=== PATIENT | male | born 1950 | race Caucasian/White ===

== ENCOUNTER → 2017-11-24 | Outpatient (CLI) | payer MEDICARE, BC ==
[2017-11-24 17:06] LABS: HEMATOCRIT 47.3 % (42.0-52.0); MEAN CORPUSCULAR HEMOGLOBIN 31.3 pg (27.0-33.0); MEAN CORPUSCULAR HGB CONC 33.8 g/dl (32.0-36.5); MEAN CORPUSCULAR VOLUME 92.4 fl (80.0-96.0); PLATELET COUNT, AUTOMATED 281 10^3/uL (150-450); RED BLOOD COUNT 5.12 10^6/uL (4.30-6.10); RED CELL DISTRIBUTION WIDTH 12.3 % (11.5-14.5); WHITE BLOOD COUNT 7.9 10^3/uL (4.0-10.0)
[2017-11-25 00:36] LABS: ALBUMIN 3.9 GM/DL (3.2-5.2); ALKALINE PHOSPHATASE 112 U/L (45-117); ALT/SGPT 21 U/L (12-78); ANION GAP 10 MEQ/L (8-16); AST/SGOT 14 U/L (7-37); BILIRUBIN,TOTAL 0.7 MG/DL (0.2-1.0); BLOOD UREA NITROGEN 12 MG/DL (7-18); CALCIUM LEVEL 9.5 MG/DL (8.8-10.2); CARBON DIOXIDE LEVEL 27 MEQ/L (21-32); CHLORIDE LEVEL 105 MEQ/L (98-107); CREATININE FOR GFR 1.06 MG/DL (0.70-1.30); GLOMERULAR FILTRATION RATE > 60.0 (>49); GLUCOSE, FASTING 90 MG/DL (70-100); HDL CHOLESTEROL 48 MG/DL (>40); POTASSIUM SERUM 4.2 MEQ/L (3.5-5.1); SODIUM LEVEL 142 MEQ/L (136-145); TOTAL PROTEIN 7.7 GM/DL (6.4-8.2); TRIGLYCERIDES LEVEL 84 MG/DL (<150)
[2017-11-25 00:54] LABS: CHOLESTEROL LEVEL 206 MG/DL (<200); CHOLESTEROL RISK RATIO 4.291 (<5); NON-HDL-C 158 MG/DL
[2017-11-25 01:13] LABS: ALBUMIN/GLOBULIN RATIO 1.03 (1.00-1.93); LDL CHOLESTEROL 141 MG/DL (<100)
== END ==
LOC: M LRY 13:12
DX: Z12.5 Encounter for screening for malignant neoplasm of prostate (principal); R97.20 Elevated prostate specific antigen [PSA]
CPT/HCPCS: 84443

== ENCOUNTER → 2018-12-15 | Outpatient (CLI) | payer MEDICARE, BC ==
[~2018-12-15] MED LIST: MONT10TA2 PO; PANT40TA3 PO; SILD25TA2 PO
[2018-12-15 11:09] LABS: HEMATOCRIT 47.6 % (42.0-52.0); HEMOGLOBIN 15.4 g/dl (13.5-17.5); MEAN CORPUSCULAR HEMOGLOBIN 31.1 pg (27.0-33.0); MEAN CORPUSCULAR HGB CONC 32.4 g/dl (32.0-36.5); MEAN CORPUSCULAR VOLUME 96.2 fl (80.0-96.0); PLATELET COUNT, AUTOMATED 210 10^3/uL (150-450); RED BLOOD COUNT 4.95 10^6/uL (4.30-6.10); WHITE BLOOD COUNT 6.7 10^3/uL (4.0-10.0)
[2018-12-15 12:00] LABS: ALBUMIN 3.7 GM/DL (3.2-5.2); ALT/SGPT 24 U/L (12-78); BILIRUBIN,TOTAL 0.6 MG/DL (0.2-1.0); BLOOD UREA NITROGEN 13 MG/DL (7-18); CALCIUM LEVEL 8.9 MG/DL (8.8-10.2); CARBON DIOXIDE LEVEL 31 MEQ/L (21-32); CHLORIDE LEVEL 105 MEQ/L (98-107); CHOLESTEROL LEVEL 189 MG/DL (<200); CREATININE FOR GFR 1.11 MG/DL (0.70-1.30); GLOMERULAR FILTRATION RATE > 60.0 (>42); GLUCOSE, FASTING 100 MG/DL (70-100); HDL CHOLESTEROL 54 MG/DL (>40); LDL CHOLESTEROL 126 MG/DL (<100); NON-HDL-C 135 MG/DL; POTASSIUM SERUM 4.3 MEQ/L (3.5-5.1); PROSTATIC SPECIFIC AG MONITOR 5.88 NG/ML (< 4.00); SODIUM LEVEL 143 MEQ/L (136-145); TOTAL PROTEIN 6.8 GM/DL (6.4-8.2); TRIGLYCERIDES LEVEL 47 MG/DL (<150)
== END ==
LOC: M WUC 08:35
PROVIDERS: ATTEND Family Medicine
DX: Z12.5 Encounter for screening for malignant neoplasm of prostate (principal); I10 Essential (primary) hypertension; R53.81 Other malaise; R97.21 Rising PSA following treatment for malignant neoplasm of prostate

== ENCOUNTER 2019-01-24 17:17 | Emergency (ER) | payer MEDICARE, BC ==
[~2019-01-24] VITALS: Ht 175.3 cm; Wt 96.4 kg
[2019-01-24] MEDS ORDERED: SILD25TA2 PO (17:29)
[2019-01-24] MEDS ORDERED: MONT10TA2 PO (17:30)
[2019-01-24] MEDS ORDERED: PANT40TA3 PO (17:30)
[2019-01-24] MEDS ORDERED: HEPARIN DRIP 25,000 UNITS in IV 1 EA IV SCH (17:35)
[2019-01-24] MEDS ORDERED: CLOPIDOGREL 300 MG TAB (PLAVIX) PO ONE (17:45)
[2019-01-24] MEDS ORDERED: HEPARIN SOD (PORCINE) 5000 UNITS/ML VIAL IV ONE (17:45)
[2019-01-24] MEDS ORDERED: TENECTEPLASE 50 MG KIT (TNKase) (J3101 PER 1MG) IV ONE (17:45)
[2019-01-24] MEDS ORDERED: MORPHINE 4 MG/ML 1ML VIAL/SYRINGE (J2270) IV PRN (17:45)
[2019-01-24] MEDS ORDERED: NS 1,000 ML IV ONE (17:45)
[2019-01-24] MEDS ORDERED: ONDANSETRON 4MG/2ML VIAL (J2405) IV ONE (17:45)
[2019-01-24 17:58] LABS: BASO # 0.1 10^3/uL (0.0-0.2); BASO % 0.3 % (0.0-1.0); EOS # 0.1 10^3/uL (0.0-0.5); EOS % 0.7 % (0.0-3.0); HEMATOCRIT 43.7 % (42.0-52.0); HEMOGLOBIN 14.6 g/dl (13.5-17.5); LYMPH # 1.8 10^3/uL (1.5-5.0); LYMPH % 9.9 % (24.0-44.0); MEAN CORPUSCULAR HEMOGLOBIN 31.8 pg (27.0-33.0); MEAN CORPUSCULAR HGB CONC 33.4 g/dl (32.0-36.5); MEAN CORPUSCULAR VOLUME 95.2 fl (80.0-96.0); MONO # 1.4 10^3/uL (0.0-0.8); MONO % 7.3 % (0.0-5.0); NEUTROPHILS # 15.2 10^3/uL (1.5-8.5); NEUTROPHILS % 81.3 % (36.0-66.0); PLATELET COUNT, AUTOMATED 235 10^3/uL (150-450); RED BLOOD COUNT 4.59 10^6/uL (4.30-6.10); WHITE BLOOD COUNT 18.6 10^3/uL (4.0-10.0)
[2019-01-24 18:03] VITALS: BP 146/69
[2019-01-24 18:07] LABS: INR 1.27; PROTHROMBIN TIME 15.7 SECONDS (11.8-14.0)
[2019-01-24 18:08] LABS: PARTIAL THROMBOPLASTIN TIME 28.3 SECONDS (25.0-38.4)
[2019-01-24 18:33] LABS: ALBUMIN 3.6 GM/DL (3.2-5.2); ALT/SGPT 22 U/L (12-78); BILIRUBIN,DIRECT 0.3 MG/DL (0.0-0.2); BLOOD UREA NITROGEN 14 MG/DL (7-18); CALCIUM LEVEL 9.4 MG/DL (8.8-10.2); CARBON DIOXIDE LEVEL 26 MEQ/L (21-32); CHLORIDE LEVEL 111 MEQ/L (98-107); CK-MB VALUE MASS 3.9 NG/ML (<3.6); CPK CREATINE PHOSPHOKINASE 187 U/L (39-308); CREATININE FOR GFR 1.24 MG/DL (0.70-1.30); GLOMERULAR FILTRATION RATE > 60.0 (>42); GLUCOSE, FASTING 132 MG/DL (70-100); LIPASE 88 U/L (73-393); MB/CK RELATIVE INDEX 2.09 (< OR =4); POTASSIUM SERUM 3.4 MEQ/L (3.5-5.1); SODIUM LEVEL 145 MEQ/L (136-145); TOTAL PROTEIN 7.2 GM/DL (6.4-8.2); TROPONIN I 0.03 NG/ML (< 0.10)
--- NOTE | 2019-01-25 08:01 | REP ---
Portable chest x-ray: A single view. History: Chest pain. Findings: EKG electrodes are seen. The lungs are symmetrically aerated and clear. The pleural angles are sharp. Heart is not enlarged. Pulmonary vasculature is not increased. No significant bony abnormality is seen. Impression: Negative portable chest x-ray. Electronically Signed by Abner Booth MD 01/25/2019 07:52 A
--- NOTE | 2019-01-26 07:23 | ECGEPIP ---
[facility] - ED Test Date: 2019-01-24 Pat Name: ANTOINETTE SUN Department: Room: - Gender: Male Benefits Clerk: TC : 1950 Requested By: Beulah Matias Order Number: [id number] Reading MD: Erasto Nova Measurements Intervals Souris Rate: 53 P: 17 MA: 170 QRS: 24 QRSD: 114 T: 82 QT: 431 QTc: 407 Interpretive Statements SINUS BRADYCARDIA INFERIOR MYOCARDIAL INFARCTION, POSSIBLY ACUTE ACUTE [place] Comparison tracing not on file Electronically Signed on 01-26-2019 7:23:32 EST by Erasto Nova
== END 2019-01-24 18:07 | disposition short-term general hospital (02) ==
LOC: EDBD 17:17 → M ED 17:17
DX: I21.19 ST elevation (STEMI) myocardial infarction involving other coronary artery of inferior wall (principal); R00.1 Bradycardia, unspecified; K21.9 Gastro-esophageal reflux disease without esophagitis; Z79.899 Other long term (current) drug therapy
CPT/HCPCS: 71045; 80048; 80076; 82550; 82553; 83690; 84484; 85025; 85610; 85730; 93005; 93041; 94760; 96374; 96375; 99291; J2270; J2405; J3101

== ENCOUNTER 2019-03-15 09:35 | Outpatient (RCR) | payer MEDICARE, BC ==
--- NOTE | 2019-03-03 10:00 | CARECAPL ---
Assessment Account #s: Initial Assessment General Diagnoses: CABG, STEMI Date of event: Jan 29, 2019 Physician: Ramone Nair Allergies: Coded Allergies: No Known Allergies (Verified Allergy, Unknown, 01/24/19) Date Entered Program: Mar 03, 2019 Risk strat for cardiac event: High Exercise Date: Mar 03, 2019 Assessment: Initial Assessment Stages of change: Preperation Exercise Prescription Plan monitored exercise to build strength and endurance and to provide education about cardiac risk factors and lifestyle changes Modalities initiated: Treadmill (will add), Nustep (will add), Arm Aerometer (will add), Dumbells (will add), Recumbent Bike (will add) Frequency: 2-3 Duration (Minutes) 30 - 60 minutes total exercise a day. 15 - 20 work intervals in minutes. PRN rest intervals in minutes. Functional Capacity Goal Sustained Metabolic Equivalent of a task (MET) goal of 2.5-3.5 for 15-20 minutes. Intensity: 3-Moderate Progression (METS) Increase by: .5 METS every: 2-3 sessions Angina with ex: No Target Heart Rate resting hr + 35-40, betablocker therapy Resistance Training: Yes Reps: 6-8 Hypertension: Yes Hypertension controlled with: Medication Resting 135/65 Meds see below Medications Scheduled Amiodarone Hcl (Pacerone), 200 MG PO DAILY, (Reported) Apixaban (Eliquis), 1 TAB PO BID, (Reported) Ascorbic Acid (Vitamin C), 500 MG PO DAILY, (Reported) Aspirin (Ecotrin), 81 MG PO DAILY, (Reported) Atorvastatin Calcium (Atorvastatin Calcium), 1 TAB PO QHS, (Reported) Docusate Sodium (Stool Softener), 1 CAP PO BID, (Reported) Ferrous Gluconate (Ferrous Gluconate), 1 TAB PO BID, (Reported) Folic Acid (Folic Acid), 1 TAB PO DAILY, (Reported) Furosemide (Furosemide), 1 TAB PO DAILY, (Reported) Metoprolol Tartrate (Metoprolol Tartrate), 25 MG PO BID, (Reported) Montelukast Sodium (Montelukast Sodium), 1 TAB PO DAILY, (Reported) Multivitamin (Multivitamins), 1 CAP PO DAILY, (Reported) Pantoprazole Sodium (Pantoprazole Sodium), 1 TAB PO DAILY, (Reported) Potassium Chloride (Potassium Chloride), 20 MEQ PO DAILY, (Reported) Ramipril (Ramipril), 1.25 MG PO DAILY, (Reported) Scheduled PRN Acetaminophen (Acetaminophen), 1 TAB PO Q4-6HP PRN for PAIN, (Reported) Discontinued Medications Sildenafil Citrate (Sildenafil Citrate), 2 TAB PO DAILY, (Reported) Discontinued Reason: PCP discontinued med Target Goals Individual exercise Rx (1) BP 140/90 or 130/80 if DM or CKD (1) Aerobic active 30+min 5 days per week (1) Nutrition Date: Mar 03, 2019 Assessment: Initial Assessment Stages of change: Preperation Lipid- med/supplement Atorvastatin Calcium Diabetes Diabetes: No Weight Management Weight (lbs): 200.2 Height (inches): 69 BMI: 29.2 Weight goal: 195 Special Diet: low salt Alcohol: special Alcohol Type: beer Alcohol Amount: 1 Diet Access Tool: Rate your plate Score: 39 Referral to Diabetes education: No Referral to lipid clinic: No Referral to weight mangement p: No Target goal LDL-C<100 if triglycerides are >200 Non-HDL-C should be <130 (1) LDL-C<70 for high risk patients (4) HbA1c<7% (1) BMI<25 Waist cir<40in M/<35in F (1) Education Date: Mar 03, 2019 Assessment: Initial Assessment Learning Barriers: ready Knowledge Test Score: 7 Stages of change: Preperation Family Support: Yes Tobacco use: No Quit: never smoked Intervention Referral to smoking cessation: No Individual education and couns: No Tobacco Adjunct: No Education class schedule given: Yes Target Goals Complete cessation of tobacco use (1). Psychosocial Date: Mar 03, 2019 Assessment: Initial Assessment Psych Test (Initial/Discharge) Tool Used: Other (PHQ-9) Score: 4 Stages of change: Preperation Intervention Physician Consult: No Physician Referral: No Target Goal Assess presence or absence of depression using a valid screening tool (1). Maximize coping skills (2). Positive support system (2). Patient/Program Goal Preventative Medication: Yes Aspirin, Yes Beta blockade, Yes Statin/OTR lipid Lowering Fall Risk Assess: No Provider Assessment Provider Assessment: Proceed with rehab Daniela Wolf RN Mar 03, 2019 10:00
[~2019-03-15 09:35] MED LIST changes: +ACET1TAB55 PO; +ATOR40TA75 PO; +ECOT81TA5 PO; +ELIQ5TAB PO; +FERR325T16 PO; +FOLI1TAB11 PO; +FURO40TA2 PO; +METO25TA4 PO; +MM S100C PO; +MULTCAP PO; +PACE200T PO; +POTA1TAB14 PO; +RAMI1CAP21 PO; +VITA500C24 PO
== END 2019-03-16 ==
LOC: M CR 09:35
PROVIDERS: ATTEND Internal Medicine Cardiovascular Disease
DX: Z98.61 Coronary angioplasty status (principal)

== ENCOUNTER → 2019-03-19 | Outpatient (CLI) | payer MEDICARE, BC ==
[2019-03-19 08:04] LABS: APPEARANCE, URINE CLEAR (CLEAR); BACTERIA, URINE AUTO NEGATIVE (NEGATIVE); BILIRUBIN, URINE AUTO NEGATIVE (NEGATIVE); BLOOD, URINE BLOOD 1+ (NEGATIVE); COLOR, URINE YELLOW (YELLOW); GLUCOSE, URINE (UA) AUTO NEGATIVE (NEGATIVE); KETONE, URINE AUTO NEGATIVE (NEGATIVE); LEUKOCYTE ESTERASE, URINE AUTO NEGATIVE (NEGATIVE); MUCUS, URINE SMALL (NEGATIVE); NITRITE, URINE AUTO NEGATIVE (NEGATIVE); PROTEIN, URINE AUTO NEGATIVE (NEGATIVE); RBC, URINE AUTO 21 /HPF (0-3); SPECIFIC GRAVITY URINE AUTO 1.017 (1.002-1.035); SQUAMOUS EPITHELIAL CELL UR AU 0 /HPF (0-6); UROBILINOGEN, URINE AUTO 0.2 mg/dL (0.0-2.0); WBC, URINE AUTO 3 /HPF (0-3)
[2019-03-19 08:29] LABS: ALBUMIN 3.2 GM/DL (3.2-5.2); BILIRUBIN,TOTAL 0.5 MG/DL (0.2-1.0); CALCIUM LEVEL 8.7 MG/DL (8.8-10.2); CHOLESTEROL RISK RATIO 3.025 (<5); CREATININE FOR GFR 1.44 MG/DL (0.70-1.30); GLOMERULAR FILTRATION RATE 51.6 (>42); POTASSIUM SERUM 4.6 MEQ/L (3.5-5.1); PROSTATIC SPECIFIC AG MONITOR 9.32 NG/ML (< 4.00); TOTAL PROTEIN 6.9 GM/DL (6.4-8.2)
== END ==
LOC: M LAB 07:11
PROVIDERS: ATTEND Family Medicine
DX: E78.5 Hyperlipidemia, unspecified (principal); R31.9 Hematuria, unspecified; R97.20 Elevated prostate specific antigen [PSA]

== ENCOUNTER → 2019-04-16 | Outpatient (RCR) | payer MEDICARE, BC ==
--- NOTE | 2019-03-29 09:39 | CARECAPL ---
Assessment Account #s: Re-Assessment I General Diagnoses: CABG, STEMI Date of event: Jan 29, 2019 Physician: Ramone Nair Allergies: Coded Allergies: No Known Allergies (Verified Allergy, Unknown, 01/24/19) Date Entered Program: Mar 12, 2019 Risk strat for cardiac event: High Exercise Date: Mar 29, 2019 Assessment: Re-Assessment I Stages of change: Preperation Exercise Prescription Plan Educate on cardiovascular disease and increase strength, flexibility, and endurance through a monitored exercise program. Modalities initiated: Treadmill (speed 1.4 incline 1.5 for 12 minutes Mets 2.27 RPE 3), Nustep (resistance of 6 for 15 minutes Mets 2.1 RPE 3), Arm Aerometer (resistance 3.5 for 10 minutes mets 2.7 RPE 3), Dumbells (4lbs 1 set 15 reps RPE 3), Recumbent Bike (resistance of 4 for 10 minutes mets 6.9 RPE 3) Frequency: 3 Duration (Minutes) 30 - 60 minutes total exercise a day. 15 - 20 work intervals in minutes. PRN rest intervals in minutes. Functional Capacity Goal Sustained Metabolic Equivalent of a task (MET) goal of 3.5-4.5 for 15-20 minutes. Intensity: 3-Moderate Progression (METS) Increase by: 0.5 METS every: 3-5 sessions Angina with ex: No Target Heart Rate Rest + 35-40 per beta luis therapy. Resistance Training: Yes Weight (pounds): 4 Reps: 12-15 Hypertension: No Hypertension controlled with: Medication Resting 108/78 Peak Exercise BP 120/70 Meds metoprolol and ramipril Medications Scheduled Amiodarone Hcl (Pacerone), 200 MG PO DAILY, (Reported) Apixaban (Eliquis), 1 TAB PO BID, (Reported) Ascorbic Acid (Vitamin C), 500 MG PO DAILY, (Reported) Aspirin (Ecotrin), 81 MG PO DAILY, (Reported) Atorvastatin Calcium (Atorvastatin Calcium), 1 TAB PO QHS, (Reported) Docusate Sodium (Stool Softener), 1 CAP PO BID, (Reported) Ferrous Gluconate (Ferrous Gluconate), 1 TAB PO BID, (Reported) Folic Acid (Folic Acid), 1 TAB PO DAILY, (Reported) Furosemide (Furosemide), 1 TAB PO DAILY, (Reported) Metoprolol Tartrate (Metoprolol Tartrate), 25 MG PO BID, (Reported) Montelukast Sodium (Montelukast Sodium), 1 TAB PO DAILY, (Reported) Multivitamin (Multivitamins), 1 CAP PO DAILY, (Reported) Pantoprazole Sodium (Pantoprazole Sodium), 1 TAB PO DAILY, (Reported) Potassium Chloride (Potassium Chloride), 20 MEQ PO DAILY, (Reported) Ramipril (Ramipril), 1.25 MG PO DAILY, (Reported) Scheduled PRN Acetaminophen (Acetaminophen), 1 TAB PO Q4-6HP PRN for PAIN, (Reported) Intervention Education: Self pulse (independent with taking his pulse), Ex safety (patient states that he keeps himself hydrated and wears comfortable loose clothing while exercising), S/S to report (patient states to report chest pain does not go away with rest, nausea and vomiting, sweating without exercise), Low NA diet (patient states he does not add salt to his food if he does will increase his blood pressure), BP medication (patient states the importance of Lopressor is to lower his blood pressure and his heart rate, his ramipril to lower his blood pressure), RPE Scale (patient demonstrates independence), Equipment orientation (patient demonstrates independence), warm up/cool down (patient demonstrates independent), Understand BP (patient states that his blood pressure is below 130/80), Physical Active (patient states he needs to remain active after cardiac rehabilitation such as joining [employer] or [employer]) Education Goals Met: No (we'll continue to educate throughout program) Target Goals Individual exercise Rx (1) BP 140/90 or 130/80 if DM or CKD (1) Aerobic active 30+min 5 days per week (1) Nutrition Date: Mar 29, 2019 Assessment: Re-Assessment I Stages of change: Preperation Med Change: No Diabetes Diabetes: No Current Weight (pounds): 197.2 Weight Goal Patient would like to be at 185 Intervention Marine Meteorologist Consult: No Nurse/patient discussion: Yes Dietary Goals Eat healthier portions and less sweets Diet Class: No Referral to Diabetes education: No (discussed going to prediabetic counseling at the [facility] with Rosie.) Referral to lipid clinic: No Referral to weight mangement p: No (discussed prediabetic counseling at the [facility] which includes weight loss program.) Education Eating Healthy (patient instructed to eat smaller portions with more vegetables and whole grains.) Education Goals Met: No (will continue educate throughout program) Target goal LDL-C<100 if triglycerides are >200 Non-HDL-C should be <130 (1) LDL-C<70 for high risk patients (4) HbA1c<7% (1) BMI<25 Waist cir<40in M/<35in F (1) Education Date: Mar 29, 2019 Assessment: Re-Assessment I Stages of change: Preperation Family Support: Yes Tobacco use: No Intervention Education: CAD (patient states high cholesterol clogs his arteries causing coronary artery disease.), Risk factors (patient states overweight and high cholesterol are risk factors for coronary artery disease.), med compliance (patient states taking medications as ordered by the M.D. is important for his heart), cardiac A&P (patient is independent describing how his functions.), Angina S/S (patient states chest pain that does go away when he relaxes.), Sexuality (patient statements with permission from M.D. before being sexually active wiyh partner.) Education Goals Met: No (we'll continue to educate throughout program) Target Goals Complete cessation of tobacco use (1). Psychosocial Date: Mar 29, 2019 Assessment: Re-Assessment I Stages of change: Preperation Intervention Physician Consult: No Physician Referral: No Med Change: No Stress Management Class: Yes Uses Stress Management Skills: Yes Education Education: Coping Techniques (discussed coping measures such as taking time for self, exercising and talking with friends and family), S/S depression (patient state signs and symptoms of depression such as withdrawa, seclusion and poor appetite.), Relaxation Techniques (patient stated ways to relax reading a book, listening to music and exercising.) Education Goals Met: No (will continue to educate) Target Goal Assess presence or absence of depression using a valid screening tool (1). Maximize coping skills (2). Positive support system (2). Patient/Program Goal Preventative Medication: Yes Aspirin, Yes Beta blockade, Yes RAYNE Inhibitor (Ramipril), Yes Statin/OTR lipid Lowering, Yes Other (Eliquis ) Fall Risk Assess: Yes (patient has no fall risk) Provider Assessment Session Number: 7 Provider Assessment: Proceed with rehab (patient is progressing well and attendance is good.) Blanca Dorman RN Mar 29, 2019 09:39
== END ==
LOC: M CR 03-19 08:15
PROVIDERS: ATTEND Internal Medicine Cardiovascular Disease
DX: Z51.89 Encounter for other specified aftercare (principal)

== ENCOUNTER → 2019-04-19 | Outpatient (CLI) | payer MEDICARE, BC ==
[~2019-04-19] MED LIST changes: +ISOVUE-370 76% 100ML VIAL (Q9967) As Ordered ONE
--- NOTE | 2019-04-19 16:08 | REP ---
CT of the abdomen pelvis without and with IV contrast for gross hematuria: After IV contrast dual phase imaging is performed. CT urogram protocol. There are no comparison studies. There are no renal, ureteral or bladder calculi. There is no hydronephrosis. There is no perinephric stranding. There are bilateral renal parapelvic cysts. There are a few small renal cortical cysts measuring up to 8 mm in diameter. There are no solid renal masses. No bladder masses are identified. The prostate is significantly enlarged measuring up to 6.4 cm transversely. The visualized lung connelly are unremarkable. The hepatic parenchyma, gallbladder, pancreas and spleen are normal size and unremarkable. The adrenals are unremarkable. The abdominal aorta is unremarkable. There is no retroperitoneal adenopathy or mass. The bowel and mesentery are unremarkable. Pelvis: Appendix is not identified, however, there is no pericecal inflammation or abscess. The terminal ileum is unremarkable. There is no adenopathy or ascites. There are no lytic, blastic or destructive skeletal changes. There is degenerative disc disease and facet osteoarthritis throughout the lumbar spine. Impression: There is no hydronephrosis. There are no renal, ureteral or bladder calculi. No renal or bladder masses are identified. There are renal parapelvic cysts. There are a few small cortical renal cysts. The prostate is significantly enlarged. There is no adenopathy or ascites. There are no lytic, blastic or destructive skeletal changes. There is degenerative disc disease and facet osteoarthritis throughout the lumbar spine. Electronically Signed by Jose Forman MD 04/19/2019 03:59 P
== END ==
LOC: M RAD 14:19
PROVIDERS: ATTEND Urology
DX: R31.0 Gross hematuria (principal)
CPT/HCPCS: 74178; Q9967

== ENCOUNTER 2019-05-14 09:02 | Outpatient (RCR) | payer MEDICARE, BC ==
--- NOTE | 2019-04-26 08:35 | CARECAPL ---
Assessment Account #s: Re-Assessment II General Diagnoses: CABG, STEMI Date of event: Jan 29, 2019 Physician: Ramone Nair Allergies: Coded Allergies: No Known Allergies (Verified Allergy, Unknown, 01/24/19) Date Entered Program: Mar 12, 2019 Risk strat for cardiac event: High Exercise Date: Apr 23, 2019 Assessment: Re-Assessment II Stages of change: action Exercise Prescription Plan Educate on cardiovascular disease and increase strength, flexibility and endurance through a monitored exercise program. Modalities initiated: Treadmill (speed 1.8 incline 3.0 for 15 minutes, mets 3.12 RPE 3), Nustep (resistance of 9 for 15 minutes. Mets 5.2 RPE 4), Arm Aerometer (resistance of 5 for 15 minutes. Mets 3.7 RPE 3), Dumbells (6lbs 2 sets 15 reps RPE 3), Recumbent Bike (resistance of 6 for 10 minutes. Mets 10.5 RPE 3) Frequency: 3 Duration (Minutes) 30 - 60 minutes total exercise a day. 15 - 20 work intervals in minutes. PRN rest intervals in minutes. Functional Capacity Goal Sustained Metabolic Equivalent of a task (MET) goal of 4.5-5.5 for 15-20 minutes. Intensity: 3-Moderate Progression (METS) Increase by: 0.5 METS every: 3-5 sessions Angina with ex: No Target Heart Rate 98-128 Age prediction of 65% to 85%. Resistance Training: Yes Weight (pounds): 6 Reps: 12-15 Medications Scheduled Apixaban (Eliquis), 1 TAB PO BID, (Reported) Ascorbic Acid (Vitamin C), 500 MG PO DAILY, (Reported) Aspirin (Ecotrin), 81 MG PO DAILY, (Reported) Atorvastatin Calcium (Atorvastatin Calcium), 1 TAB PO QHS, (Reported) Montelukast Sodium (Montelukast Sodium), 1 TAB PO DAILY, (Reported) Multivitamin (Multivitamins), 1 CAP PO DAILY, (Reported) Pantoprazole Sodium (Pantoprazole Sodium), 1 TAB PO DAILY, (Reported) Scheduled PRN Acetaminophen (Acetaminophen), 1 TAB PO Q4-6HP PRN for PAIN, (Reported) Discontinued Medications Amiodarone Hcl (Pacerone), 200 MG PO DAILY, (Reported) Discontinued Reason: Pt states not taking Docusate Sodium (Stool Softener), 1 CAP PO BID, (Reported) Discontinued Reason: Pt states not taking Ferrous Gluconate (Ferrous Gluconate), 1 TAB PO BID, (Reported) Discontinued Reason: Pt states not taking Folic Acid (Folic Acid), 1 TAB PO DAILY, (Reported) Discontinued Reason: Pt states not taking Furosemide (Furosemide), 1 TAB PO DAILY, (Reported) Discontinued Reason: Pt states not taking Metoprolol Tartrate (Metoprolol Tartrate), 25 MG PO BID, (Reported) Discontinued Reason: Pt states not taking Potassium Chloride (Potassium Chloride), 20 MEQ PO DAILY, (Reported) Discontinued Reason: Pt states not taking Ramipril (Ramipril), 1.25 MG PO DAILY, (Reported) Discontinued Reason: Pt states not taking Current BP 140/80 Med Change: Yes (metoprolol and ramipril stopped.) Education Goals Met: No (see education on prior ITP. will continue to educate throughout program.) Target Goals Individual exercise Rx (1) BP 140/90 or 130/80 if DM or CKD (1) Aerobic active 30+min 5 days per week (1) Nutrition Date: Apr 26, 2019 Assessment: Re-Assessment II Stages of change: action Med Change: No Diabetes Diabetes: No Weight Management Weight (lbs): 205 Height (inches): 70 Waist Circumference (Inches): 41.5 BMI: 29.41 Current Weight (pounds): 205 Weight Goal 185 Intervention Laboratory Equipment Cleaner Consult: No Nurse/patient discussion: Yes Dietary Goals Eat smaller portions, more vegetables and whole grains. Diet Class: Yes Education Goals Met: No (see education and prior ITPs. Will continue to educate throughout program.) Target goal LDL-C<100 if triglycerides are >200 Non-HDL-C should be <130 (1) LDL-C<70 for high risk patients (4) HbA1c<7% (1) BMI<25 Waist cir<40in M/<35in F (1) Education Date: Apr 26, 2019 Assessment: Re-Assessment II Stages of change: action Quit: never smoked Education Goals Met: No (see education on prior ITPs. Will continue to educate throughout program.) Target Goals Complete cessation of tobacco use (1). Psychosocial Date: Apr 26, 2019 Assessment: Re-Assessment II Stages of change: action Med Change: No Stress Management Class: Yes Uses Stress Management Skills: Yes Education Goals Met: No (will continue to educate throughout program. See education prior on ITP.) Target Goal Assess presence or absence of depression using a valid screening tool (1). Maximize coping skills (2). Positive support system (2). Patient/Program Goal Preventative Medication: Yes Aspirin, Yes Statin/OTR lipid Lowering, Yes Other (eliquis) Fall Risk Assess: Yes (no fall risk) Provider Assessment Session Number: 18 Provider Assessment: Proceed with rehab (progressing well in cardiac rehabilitation and attendance is good.) Blanca Dorman RN Apr 26, 2019 08:35
[2019-04-28 07:40] VITALS: BP 124/78
[2019-04-28 07:58] VITALS: BP 130/70
[2019-04-28 09:09] VITALS: BP 124/80
[2019-04-30 09:10] VITALS: BP 130/70
[2019-04-30 09:40] VITALS: BP 136/60
[2019-04-30 09:50] VITALS: BP 130/82
[2019-05-03 07:30] VITALS: BP 110/70
[2019-05-03 08:17] VITALS: BP 146/70
[2019-05-03 09:13] VITALS: BP 122/80
[2019-05-05 07:40] VITALS: BP 128/80
[2019-05-05 08:15] VITALS: BP 158/88
[2019-05-05 09:07] VITALS: BP 138/80
[2019-05-07 07:35] VITALS: BP 132/70
[2019-05-07 08:45] VITALS: BP 140/80
[2019-05-07 09:02] VITALS: BP 130/80
[2019-05-10 09:37] VITALS: BP 118/70
[2019-05-10 09:38] VITALS: BP_SYST 130; BP_SYST 180; BP_DIAS 70; BP_DIAS 86
[2019-05-12 08:00] VITALS: BP_SYST 118; BP_SYST 120; BP_SYST 152; BP_DIAS 68; BP_DIAS 70; BP_DIAS 80
[~2019-05-14] VITALS: Ht 177.8 cm; Wt 93.2 kg
[2019-05-14 07:35] VITALS: BP 118/76
[2019-05-14 08:20] VITALS: BP 142/82
[2019-05-14 09:15] VITALS: BP 118/70
== END 2019-05-15 ==
LOC: M CR 09:02
PROVIDERS: ATTEND Internal Medicine Cardiovascular Disease
DX: Z47.89 Encounter for other orthopedic aftercare (principal); I25.2 Old myocardial infarction

== ENCOUNTER → 2019-05-14 | Outpatient (CLI) | payer MEDICARE, BC ==
[~2019-05-14] MED LIST changes: -ISOVUE-370 76% 100ML VIAL (Q9967) As Ordered ONE; -MONT10TA2 PO; +MONT10TA4 PO
[2019-05-14 08:20] LABS: CHOLESTEROL RISK RATIO 2.976 (<5)
== END ==
LOC: M LAB 07:03
PROVIDERS: ATTEND Nurse Practitioner Adult Health
DX: I21.19 ST elevation (STEMI) myocardial infarction involving other coronary artery of inferior wall (principal); E78.2 Mixed hyperlipidemia

== ENCOUNTER 2019-05-17 08:40 | Outpatient (RCR) | payer MEDICARE, BC ==
[~2019-05-17] VITALS: Ht 175.3 cm; Wt 94.5 kg
[2019-05-17 09:38] VITALS: BP 134/80
[2019-05-17 09:39] VITALS: BP_SYST 138; BP_SYST 160; BP_DIAS 78; BP_DIAS 80
[2019-05-19 09:35] VITALS: BP 122/80
[2019-05-19 09:37] VITALS: BP_SYST 122; BP_SYST 172; BP_DIAS 80; BP_DIAS 82
--- NOTE | 2019-05-20 17:26 | CARECAPL ---
Assessment Account #s: Re-Assessment II (REASSESSMENT III) General Diagnoses: CABG, STEMI Date of event: Jan 29, 2019 Physician: Ramone Nair Allergies: Coded Allergies: No Known Allergies (Verified Allergy, Unknown, 01/24/19) Date Entered Program: Mar 12, 2019 Risk strat for cardiac event: High Exercise Date: May 20, 2019 Assessment: Re-Assessment II (REASSESSMENT III) Stages of change: action Exercise Prescription Plan TO EDUCATE AND BUILD ENDURANCE THROUGH MONITORED EXERCISE PROGRAM Modalities initiated: Treadmill (METS=3.62/RPE=3), Nustep (METS=5.9/RPE=3), Arm Aerometer (METS=3.9/RPE=3), Dumbells (8#/RPE=3), Recumbent Bike (METS=12.5/RPE=3) Frequency: 3 Duration (Minutes) 30 - 60 minutes total exercise a day. 15 - 20 work intervals in minutes. PRN rest intervals in minutes. Functional Capacity Goal Sustained Metabolic Equivalent of a task (MET) goal of 6.0-7.0 for 15-20 minutes. Intensity: 3-Moderate Progression (METS) Increase by: 0.5 METS every: 5 sessions as tolerated Angina with ex: No Target Heart Rate 98-128 AGE PREDICTION OF 65%-85% Resistance Training: Yes Weight (pounds): 8 Reps: 12-15 Hypertension: No Resting 122/80 Peak Exercise BP 172/82 Medications Scheduled Apixaban (Eliquis), 1 TAB PO BID, (Reported) Ascorbic Acid (Vitamin C), 500 MG PO DAILY, (Reported) Aspirin (Ecotrin), 81 MG PO DAILY, (Reported) Atorvastatin Calcium (Atorvastatin Calcium), 1 TAB PO QHS, (Reported) Montelukast Sodium (Montelukast Sodium), 1 TAB PO DAILY, (Reported) Multivitamin (Multivitamins), 1 CAP PO DAILY, (Reported) Pantoprazole Sodium (Pantoprazole Sodium), 1 TAB PO DAILY, (Reported) Scheduled PRN Acetaminophen (Acetaminophen), 1 TAB PO Q4-6HP PRN for PAIN, (Reported) Current BP 122/80 Med Change: No Intervention Resistance Training: Yes Education: Self pulse (SEE EDUCATION ON PRIOR ITP'S, CONTINUE TO EDUCATE AND REINFORCE THROUGHOUT PROGRAM) Education Goals Met: Yes (PROGRESSING TOWARD GOALS) Target Goals Individual exercise Rx (1) BP 140/90 or 130/80 if DM or CKD (1) Aerobic active 30+min 5 days per week (1) Nutrition Date: May 20, 2019 Assessment: Re-Assessment II (REASSESSMENT III) Stages of change: action Lipid- med/supplement ATORVASTATIN Med Change: No Diabetes Diabetes: No Weight Management Weight (lbs): 206 Special Diet: low salt, low-fat Vitamin/Supplements: Multivitamin, Vitamin C Current Weight (pounds): 206 Intervention Cert Pharmacy Tech Consult: No Nurse/patient discussion: Yes Dietary Goals TO EAT HEART HEALTHY DIET CHOICES, SMALLER PORTIONS Diet Class: Yes (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/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) Referral to Diabetes education: No Referral to lipid clinic: No Referral to weight mangement p: No Education Eating Healthy Education Goals Met: Yes (PROGRESSING TOWARD GOALS) Target goal LDL-C<100 if triglycerides are >200 Non-HDL-C should be <130 (1) LDL-C<70 for high risk patients (4) HbA1c<7% (1) BMI<25 Waist cir<40in M/<35in F (1) Education Date: May 20, 2019 Assessment: Re-Assessment II (REASSESSMENT III) Learning Barriers: ready Stages of change: action Family Support: Yes Tobacco use: No Tobacco Use Smokeless tobacco: No Intervention Referral to smoking cessation: No Individual education and couns: No Tobacco Adjunct: No Education class schedule given: No Attended education classes: No Education: tobacco triggers (SEE EDUCATION ON PRIOR ITP'S, CONTINUE TO EDUCATE AND REINFORCE WHILE IN PROGRAM) Education Goals Met: Yes (PROGRESSING TOWARD GOALS) Target Goals Complete cessation of tobacco use (1). Psychosocial Date: May 20, 2019 Assessment: Re-Assessment II (REASSESSMENT III) Stages of change: action Intervention Physician Consult: No Physician Referral: No Med Change: No Stress Management Class: No Uses Stress Management Skills: Yes Education Education: Coping Techniques (SEE EDUCATION ON PRIOR ITP'S, CONTINUE TO EDUCATE AND REINFORCE WHILE IN PROGRAM) Education Goals Met: Yes (PROGRESSING TOWARD GOALS) Target Goal Assess presence or absence of depression using a valid screening tool (1). Maximize coping skills (2). Positive support system (2). Patient/Program Goal Preventative Medication: Yes Aspirin, Yes Statin/OTR lipid Lowering, Yes Other (ELIQUIS) Fall Risk Assess: Yes (NOT A FALL RISK) Provider Assessment Session Number: 29 Provider Assessment: Proceed with rehab Delmar Jacobson RN May 20, 2019 17:26
[2019-05-21 07:39] VITALS: BP 120/60
[2019-05-21 08:15] VITALS: BP 162/90
[2019-05-21 09:06] VITALS: BP 112/80
[2019-05-26 09:10] VITALS: BP 128/78
[2019-05-26 09:11] VITALS: BP_SYST 128; BP_SYST 130; BP_DIAS 80; BP_DIAS 90
[2019-05-28 07:39] VITALS: BP 124/76
[2019-05-28 08:15] VITALS: BP 158/86
[2019-05-28 09:13] VITALS: BP 116/80
[2019-05-31 07:46] VITALS: BP 120/62
[2019-05-31 08:44] VITALS: BP 160/86
[2019-05-31 09:08] VITALS: BP 116/78
[2019-06-02 07:49] VITALS: BP 120/70
[2019-06-02 09:01] VITALS: BP 150/90
[2019-06-02 09:27] VITALS: BP 110/78
[2019-06-04 07:36] VITALS: BP 132/78
[2019-06-04 08:45] VITALS: BP 170/88
[2019-06-04 09:06] VITALS: BP 132/80
--- NOTE | 2019-06-04 10:09 | CARECAPL ---
Assessment Account #s: Discharge General Diagnoses: CABG, STEMI Date of event: Jan 29, 2019 Physician: Ramone Nair Allergies: Coded Allergies: No Known Allergies (Verified Allergy, Unknown, 01/24/19) Date Entered Program: Mar 12, 2019 Risk strat for cardiac event: High Exercise Assessment: Followup/Discharge Stages of change: action Exercise Prescription Plan TO EDUCATE AND BUILD ENDURANCE THROUGH MONITORED EXERCISE PROGRAM Modalities initiated: Treadmill (METS=3.87/RPE=3), Nustep (METS=5.4/RPE=3), Arm Aerometer (METS=3.7/RPE=3), Dumbells (8#/RPE=3), Recumbent Bike (METS=8.8/RPE=3) Frequency: 3 Duration (Minutes) 30 - 60 minutes total exercise a day. 15 - 20 work intervals in minutes. PRN rest intervals in minutes. Functional Capacity Goal Sustained Metabolic Equivalent of a task (MET) goal of 4.5-5.5 for 15-20 minutes. Intensity: 3-Moderate Progression (METS) Increase by: METS every: sessions Angina with ex: No Target Heart Rate 98-128 AGE PREDICTION OF 65%-85% Resistance Training: Yes Weight (pounds): 8 Reps: 12-15 Hypertension: No Resting 132/78 Peak Exercise BP 170/88 Medications Scheduled Apixaban (Eliquis), 1 TAB PO BID, (Reported) Ascorbic Acid (Vitamin C), 500 MG PO DAILY, (Reported) Aspirin (Ecotrin), 81 MG PO DAILY, (Reported) Atorvastatin Calcium (Atorvastatin Calcium), 1 TAB PO QHS, (Reported) Montelukast Sodium (Montelukast Sodium), 1 TAB PO DAILY, (Reported) Multivitamin (Multivitamins), 1 CAP PO DAILY, (Reported) Pantoprazole Sodium (Pantoprazole Sodium), 1 TAB PO DAILY, (Reported) Scheduled PRN Acetaminophen (Acetaminophen), 1 TAB PO Q4-6HP PRN for PAIN, (Reported) Current BP 132/80 Med Change: No Intervention Resistance Training: Yes Education Goals Met: Yes (SEE EDUCATION ON PREVIOUS ITP'S, CONTINUED TO EDUCATE AND REINFORCE THROUGHOUT PROGRAM) Target Goals Individual exercise Rx (1) BP 140/90 or 130/80 if DM or CKD (1) Aerobic active 30+min 5 days per week (1) Nutrition Date: Jun 04, 2019 Assessment: Followup/Discharge Stages of change: action Lipid- med/supplement ATORVASTATIN Med Change: No Diabetes Diabetes: No Medication Change: No Weight Management Weight (lbs): 206.8 Special Diet: low salt, low-fat Vitamin/Supplements: Multivitamin, Vitamin C Diet Access Tool: Rate your plate Score: 47 Current Weight (pounds): 206.8 Intervention Tower Operator Consult: No Nurse/patient discussion: Yes Dietary Goals TO MAKE HEART HEALTHY CHOICES AND SMALLER PORTIONS Diet Class: Yes (MET WITH CLINICAL LABORATORY MEDICAL DIRECTOR 04/26/19) Referral to Diabetes education: No Referral to lipid clinic: No Referral to weight mangement p: No Education Eating Healthy Education Goals Met: Yes Target goal LDL-C<100 if triglycerides are >200 Non-HDL-C should be <130 (1) LDL-C<70 for high risk patients (4) HbA1c<7% (1) BMI<25 Waist cir<40in M/<35in F (1) Education Date: Jun 04, 2019 Assessment: Followup/Discharge Learning Barriers: ready Knowledge Test Score: 8 Stages of change: action Family Support: Yes Tobacco use: No Tobacco Use Smokeless tobacco: No Intervention Referral to smoking cessation: No Individual education and couns: No Tobacco Adjunct: No Education class schedule given: No Attended education classes: No Education Goals Met: Yes (SEE EDUCATION PROVIDED ON PREVIOUS ITP'S, CONTINUED TO EDUCATE AND REINFORCE THROUGHOUT PROGRAM) Target Goals Complete cessation of tobacco use (1). Psychosocial Date: Jun 04, 2019 Assessment: Followup/Discharge Stages of change: action Intervention Physician Consult: No Physician Referral: No Med Change: No Stress Management Class: No Uses Stress Management Skills: Yes Education Goals Met: Yes (PATIENT HAS HAD EXCELLENT ATTENDENCE AND GOOD ATTITUDE REGARDING EDUCATION) Target Goal Assess presence or absence of depression using a valid screening tool (1). Maximize coping skills (2). Positive support system (2). Patient/Program Goal Preventative Medication: Yes Aspirin, Yes Statin/OTR lipid Lowering, Yes Other (ELIQUIS) Fall Risk Assess: Yes (NOT A FALL RISK, TUG TEST = 8 SEC) Provider Assessment Session Number: 35 Provider Assessment: No changes Delmar Jacobson RN Jun 04, 2019 10:09
== END 2019-06-15 ==
LOC: M CR 08:40
PROVIDERS: ATTEND Internal Medicine Cardiovascular Disease
DX: Z51.89 Encounter for other specified aftercare (principal); I25.2 Old myocardial infarction